=== PATIENT | male | born 1985 | race Caucasian/White ===

== ENCOUNTER 2016-08-21 14:40 | Emergency (ER) | payer OTHER ==
[2016-08-21] MEDS ORDERED: NS 500 ML IV ONE (14:59)
[2016-08-21] MEDS ORDERED: ONDANSETRON 4 MG/2 ML VIAL IVP ONE ×2 (14:59→16:24)
--- NOTE | 2016-08-21 15:11 | EDPHY ---
H & P Time Seen by Provider: 08/21/16 15:07 HPI/ROS: Chief complaint. Abdominal pain HPI. 30-year-old male with history of IBS. Has abdominal pain in the right lower quadrant that began yesterday. He was gassy. He returned on a flight from [place] and began have discomfort on the flight. No relief by taking Bentyl which usually helps is IBS symptoms. He had diarrhea this morning. His nausea without vomiting. The pain is in the right lower part of his abdomen. It comes in waves. It is not particularly worse with movement. He had similar symptoms and was hospitalized in May 2016 and had GI workup. He has been seeing Dr. Marquez for GI since then. He also had liver function studies at time. Denies urinary symptoms or fever. ROS Constitutional. no fever/chills, no weakness Eyes. no problems with vision ENT. no sore throat, no nasal drainage Cardiovascular. no chest pain Respiratory. no shortness of breath, no cough Abdominal. Abdominal pain with nausea and diarrhea . no problems urinating MS. no calf pain/swelling, no neck/back pain, no joint pain Skin. no rash Lymph. no swollen glands Neuro. no headache, no dizziness, no difficulty walking or with speech Past Medical/Surgical History: IBS, asthma Social History: , nonsmoker, no alcohol Smoking Status: Never smoked Physical Exam: General Appearance: Alert well-developed male moderate distress vital signs are stable Eyes: Pupils equal and round no pallor or injection. ENT, Mouth: Mucous membranes are moist. Respiratory: There are no retractions, lungs are clear to auscultation. Cardiovascular: Regular rate and rhythm. Gastrointestinal: Abdomen is soft and tender at McBurney's point in the right lower quadrant. Normal bowel sounds. No masses. No flank tenderness Neurological: Awake and alert, sensory and motor exams grossly normal. Skin: Warm and dry, no rashes. Musculoskeletal: Neck is supple nontender. Extremities symmetrical, full range of motion. Psychiatric: Patient is oriented X 3, there is no agitation. Constitutional: Initial Vital Signs Temperature (C) 36.5 C 08/21/16 14:48 Heart Rate 87 08/21/16 14:48 Respiratory Rate 18 08/21/16 14:48 Blood Pressure 113/84 H 08/21/16 14:48 O2 Sat (%) 97 08/21/16 14:48 O2 Delivery Mode Nasal Cannula O2 (L/minute) 2 Allergies/Adverse Reactions: codeine Allergy (Intermediate, Verified 08/21/16 14:48) Vomiting peanut Allergy (Unknown, Verified 08/21/16 14:48) Unknown Home Medications: Medication Instructions Recorded Dicyclomine [Bentyl 20 MG (*)] 20 mg PO QID PRN 06/08/16 Medical Decision Making - Diagnostics Imaging: CT abdomen with IV contrast reviewed by me and discussed with Dr. Morris shows distal esophageal circumferential thickening with lymph node. Differential would include esophagitis verses cancer. He also has some fluids throughout his small and cyst in consistent with dysmotility. Mild small-bowel inflammation. No appendix. No small bowel obstruction, perforation or intra- abdominal free fluid Procedures: IV normal saline. Dilaudid for pain ED Course/Re-evaluation: Re-evaluation at 5:15 --patient continues to have pain and nausea. Patient and I discussed treatment plan including recommendation for admission. He expresses understanding and agreement I consulted and discussed the case with Dr. Lou, hospitalist, who agrees to the admission I consulted and discussed the case with Dr. Tian, GI, who will see the patient in consult 6:30 p.m. patient apparently vomited large amount and now feels better and would like to be discharged. I have encouraged him to follow up with Dr. bria johnson and give him a call tomorrow morning. Patient is encouraged to return for worsening symptoms Differential Diagnosis: I consider IBS, Crohn's disease, appendicitis - Data Points Laboratory Results: Laboratory Results 08/21/16 15:00 08/21/16 15:00 08/21/16 15:00 WBC 8.89 10^3/uL (3.80-9.50) RBC 6.29 10^6/uL (4.40-6.38) Hgb 18.7 H g/dL (13.7-17.5) Hct 54.1 H % (40.0-51.0) MCV 86.0 fL (81.5-99.8) MCH 29.7 pg (27.9-34.1) MCHC 34.6 g/dL (32.4-36.7) RDW 12.8 % (11.5-15.2) Plt Count 194 10^3/uL (150-400) MPV 10.3 fL (8.7-11.7) Neut % (Auto) 82.1 H % (39.3-74.2) Lymph % (Auto) 10.3 L % (15.0-45.0) [place] % (Auto) 4.3 L % (4.5-13.0) Eos % (Auto) 2.0 % (0.6-7.6) Baso % (Auto) 0.4 % (0.3-1.7) Nucleat RBC Rel Count 0.0 % (0.0-0.2) Absolute Neuts (auto) 7.29 H 10^3/uL (1.70-6.50) Absolute Lymphs (auto) 0.92 L 10^3/uL (1.00-3.00) Absolute Monos (auto) 0.38 10^3/uL (0.30-0.80) Absolute Eos (auto) 0.18 10^3/uL (0.03-0.40) Absolute Basos (auto) 0.04 10^3/uL (0.02-0.10) Absolute Nucleated RBC 0.00 10^3/uL (0-0.01) Immature Gran % 0.9 % (0.0-1.1) Immature Gran # 0.08 10^3/uL (0.00-0.10) Turbidity Cancelled Sodium 143 mEq/L (134-144) Potassium 4.0 mEq/L (3.5-5.2) Chloride 106 mEq/L (97-110) Carbon Dioxide 22 mEq/l (22-31) Anion Gap 15 mEq/L (8-16) BUN 16 mg/dL (7-23) Creatinine 1.0 mg/dL (0.7-1.3) Estimated GFR > 60 Glucose 91 mg/dL (70-100) Calcium 9.9 mg/dL (8.5-10.4) Total Bilirubin 1.7 H mg/dL (0.1-1.4) Conjugated Bilirubin 0.5 mg/dL (0.0-0.5) Unconjugated Bilirubin 1.2 H mg/dL (0.0-1.1) AST 39 IU/L (17-59) ALT 47 IU/L (21-72) Alkaline Phosphatase 91 IU/L (38-126) Total Protein 8.1 g/dL (6.3-8.2) Albumin 4.7 g/dL (3.5-5.0) Lipase 67.0 IU/L (23-300) Specimen Hemolysis Cancelled Medications Given: Discontinued Medications Hydromorphone HCl (Dilaudid) 0.5 mg IVP EDNOW ONE Stop: 08/21/16 15:14 Last Admin: 08/21/16 15:23 Dose: 0.5 mg Hydromorphone HCl (Dilaudid) 0.5 mg IVP EDNOW ONE Stop: 08/21/16 15:41 Last Admin: 08/21/16 15:45 Dose: 0.5 mg Hydromorphone HCl (Dilaudid) 0.5 mg IVP EDNOW ONE Stop: 08/21/16 16:59 Last Admin: 08/21/16 17:06 Dose: 0.5 mg Sodium Chloride (Ns) 500 mls @ 0 mls/hr IV EDNOW ONE PRN Reason: Wide Open Stop: 08/21/16 15:00 Last Admin: 08/21/16 15:05 Dose: 500 mls Sodium Chloride (Ns) 1,000 mls @ 0 mls/hr IV ONCE ONE PRN Reason: Wide Open Stop: 08/21/16 15:53 Last Admin: 08/21/16 15:45 Dose: 1,000 mls Ondansetron HCl (Zofran) 4 mg IVP EDNOW ONE Stop: 08/21/16 15:00 Last Admin: 08/21/16 15:05 Dose: 4 mg Ondansetron HCl (Zofran) 4 mg IVP EDNOW ONE Stop: 08/21/16 16:25 Last Admin: 08/21/16 16:35 Dose: 4 mg Departure - Departure Disposition: Home, Routine, Self-Care Clinical Impression: Abdominal pain Condition: Good
[2016-08-21] MEDS ORDERED: HYDROmorphONE/DILAUDID 1 MG/ML SYR IVP ONE ×3 (15:13→16:58)
[2016-08-21 15:23] LABS: % IMMATURE GRANULYOCYTES 0.9 % (0.0-1.1); ABSOLUTE IMMATURE GRANULOCYTES 0.08 10^3/uL (0.00-0.10); ADD DIFF? NO; ADD MORPH? NO; ADD SCAN? NO; ATYPICAL LYMPHOCYTE FLAG 0 (0-99); FRAGMENT RBC FLAG 0 (0-99); HEMATOCRIT 54.1 % (40.0-51.0); HEMOGLOBIN 18.7 g/dL (13.7-17.5); LEFT SHIFT FLG 0 (0-99); LIPEMIA HEMOLYSIS FLAG 90 (0-99); MEAN CELL HEMOGLOBIN 29.7 pg (27.9-34.1); MEAN CELL HEMOGLOBIN CONCENTR. 34.6 g/dL (32.4-36.7); MEAN PLATELET VOLUME 10.3 fL (8.7-11.7); PLATELET CLUMPS FLAG 10 (0-99); PLATELET COUNT 194 10^3/uL (150-400); RED BLOOD CELL COUNT 6.29 10^6/uL (4.40-6.38); RED CELL DISTRIBUTION WIDTH 12.8 % (11.5-15.2)
[2016-08-21 15:24] VITALS: RESP 16
[2016-08-21 15:38] LABS: ANION GAP 15 mEq/L (8-16); CALCIUM 9.9 mg/dL (8.5-10.4); CARBON DIOXIDE 22 mEq/l (22-31); CHLORIDE 106 mEq/L (97-110); GLOMERULAR FILTRATION RATE > 60; GLUCOSE 91 mg/dL (70-100); SODIUM 143 mEq/L (134-144)
[2016-08-21] MEDS ORDERED: NS 1,000 ML IV ONE (15:52)
[2016-08-21] MEDS ORDERED: IOPAMIDOL (ISOVUE-300) 100 ML BTL IV ONE ×2 (16:08→16:24)
[2016-08-21 16:10] LABS: ALBUMIN 4.7 g/dL (3.5-5.0); BILIRUBIN,TOTAL 1.7 mg/dL (0.1-1.4); BILIRUBIN-CONJUGATED 0.5 mg/dL (0.0-0.5); BILIRUBIN-UNCONJUGATED 1.2 mg/dL (0.0-1.1); TOTAL PROTEIN 8.1 g/dL (6.3-8.2)
--- NOTE | 2016-08-21 17:32 | CT ---
CT Scan of the Abdomen and Pelvis (With Contrast) Indication: Abdominal pain. Technique: No oral or rectal contrast. 90 mL of Isovue-300 were given intravenously by machine power injection. Multidetector helical CT imaging was performed from the diaphragm to the symphysis pubis . Dose reduction techniques were utilized. Comparison: CT abdomen and pelvis dated June 07, 2016. Findings: The distal esophagus has circumferential wall thickening and an enlarged 1 cm right paraeso phageal lymph node on images 4 through 22 of series 4. The stomach is moderately distended with fluid . No ulcer or gastric wall thickening. The small bowel and colon has a diffusely dysmotile bowel andrzej jose alfredo with increased intraluminal fluid. The terminal ileum and scattered loops of distal ileum have eq uivocal eccentric wall enhancement. No mechanical obstruction or mass. Previous ileocolic lymphadenop athy has nearly completely resolved. No free fluid, abscess or pneumoperitoneum. The upper normal size spleen measuring 13 x 13 x 4 cm with a splenic index of 379 is unchanged in siz e. The liver, pancreas, gallbladder, adrenal glands, and kidneys are normal. The abdominal aorta is n ormal caliber. Urinary bladder is normal. The lung bases are clear. Lumbar spine is normal. No sacroiliitis. Impression: 1. Abnormal distal esophagus with associated enlarged lymph node. Differential diagnosis includes eso phagitis, inflammatory processes such as Crohn disease, and malignancy. Recommend endoscopy to optima lly evaluate. 2. Dysmotile bowel pattern with features of mild enteritis. Query Crohn disease versus infectious henry ology. 3. No bowel obstruction, free fluid, or abscess. 4. Upper normal size spleen unchanged. Comment: Results were discussed with Dr. Drew Jean.
[2016-08-21] MEDS ORDERED: PROMETHAZINE HCL 25 MG/ML INJ ONE (18:01)
[2016-08-21] MEDS ORDERED: PROMETHAZINE HCL 25 MG/ML INJ IVP ONE (18:02)
[2016-08-21] MEDS ORDERED: OXYCODONE/APAP 5/325MG PREPACK#4 BTL TAKEHOME ONE (18:53)
[2016-08-21] MEDS ORDERED: ONDANSETRON 4MG PREPACK#2 BTL TAKEHOME ONE (18:53)
[2016-08-21] MEDS ORDERED: KETOROLAC 15 MG/1 ML SDV IVP ONE (18:53)
[2016-08-21 19:11] VITALS: BP 103/61; PULSE 90; TEMP 98.6; O2SAT 96
== END 2016-08-21 19:12 | disposition home or self-care (01) ==
LOC: UNDOADMOB 17:58
DX: R10.31 Right lower quadrant pain (principal); J45.909 Unspecified asthma, uncomplicated; Z91.010 Allergy to peanuts
CPT/HCPCS: 96374; J1170; J1885; J2405; J2550; Q9967

== ENCOUNTER 2017-01-21 19:33 | Emergency (ER) | payer OTHER ==
[2017-01-21] MEDS ORDERED: PROPARACAINE 0.5% 15 ML OPHT DROP ONE (19:56)
[2017-01-21] MEDS ORDERED: FLUORESCEIN SODIUM 1 MG STRIP OP ONE (19:56)
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
[2017-01-21] MEDS ORDERED: OFLOXACIN 0.3% SOLN PREPACK OPHT.BTL TAKEHOME ONE (21:16)
[2017-01-21] MEDS ORDERED: PROPARACAINE 0.5% 15 ML OPHT DROP EACHEYE ONE (21:41)
[2017-01-21 21:44] VITALS: BP 115/69; PULSE 68; RESP 16; TEMP 97.9; O2SAT 96
== END 2017-01-21 21:44 | disposition home or self-care (01) ==
DX: T26.10XA Burn of cornea and conjunctival sac, unspecified eye, initial encounter (principal); X10.1XXA Contact with hot food, initial encounter

== ENCOUNTER 2017-05-11 10:59 | Emergency (ER) | payer OTHER ==
[2017-05-11] MEDS ORDERED: KETAMINE 100 MG/10 ML SYR IVP ONE (12:15)
--- NOTE | 2017-05-11 12:26 | EDPHY ---
H & P Stated Complaint: Lower abdo pain since this morning, sent by . Time Seen by Provider: 05/11/17 11:54 HPI/ROS: CHIEF COMPLAINT: Abdominal pain HISTORY OF PRESENT ILLNESS: The patient presents to the ED with an acute exacerbation of chronic abdominal pain. The patient was referred to the emergency department by his primary flexo operator Dr. Marquez. The patient reports he has been doing with intermittent abdominal pain for over a decade. The patient typically gets paroxysms of pain in his right lower quadrant. The patient reports he took Levsin prior to arrival which typically improves his symptoms. The patient did not have improvement of his symptoms which prompted his visit to the emergency department. The patient denies fever or diarrhea. He does report nausea and a abnormal taste in his mouth. The patient denies any history of fever, cough or congestion. REVIEW OF SYSTEMS: A comprehensive 10 point review of systems is otherwise negative aside from elements mentioned in the history of present illness. Source: Patient Exam Limitations: No limitations - Personal History Current Tetanus Diphtheria and Acellular Pertussis (TDAP): Yes - Medical/Surgical History Hx Asthma: Yes Hx Chronic Respiratory Disease: No Hx Diabetes: No Hx Cardiac Disease: No Hx Renal Disease: No Hx Cirrhosis: No Hx Alcoholism: No Hx HIV/AIDS: No Hx Splenectomy or Spleen Trauma: No Other PMH: ASTHMA, IBS. - Social History Smoking Status: Never smoked - Physical Exam Exam: General Appearance: Alert, no distress Eyes: Pupils equal and round no pallor or injection ENT, Mouth: Mucous membranes moist Respiratory: There are no retractions, lungs are clear to auscultation Cardiovascular: Regular rate and rhythm Gastrointestinal: Tenderness to palpation right lower quadrant, no peritoneal signs Neurological: A&O, normal motor function, normal sensory exam, normal cranial nerves Skin: Warm and dry, no rashes Musculoskeletal: Neck is supple nontender Extremities: symmetrical, full range of motion Constitutional: Initial Vital Signs Temperature (C) 36.5 C 05/11/17 11:09 Heart Rate 82 05/11/17 11:09 Respiratory Rate 18 05/11/17 11:09 Blood Pressure 116/84 H 05/11/17 11:09 O2 Sat (%) 97 05/11/17 11:09 O2 Delivery Mode Room Air Allergies/Adverse Reactions: codeine Allergy (Intermediate, Verified 01/21/17 19:37) Vomiting peanut Allergy (Unknown, Verified 01/21/17 19:37) Unknown Home Medications: Medication Instructions Recorded Hycosamine 01/21/17 Medical Decision Making ED Course/Re-evaluation: The patient had an IV established. He received a dose of IV Toradol and ketamine. The patient's laboratory studies are within normal limits. The patient was taken for CT scan of the abdomen pelvis which demonstrates an area of focal area of inflammation in the small bowel. There is a normal appearing appendix. There is no evidence of a perforation or obstruction. The patient was re-evaluated. He is currently feeling better. The patient is currently established with [facility]. I do feel the patient can continue his regular medications. He should follow up with his regular flexo operator Dr. Marquez to review his CT scan. The patient should return to the ED for markedly worsening symptoms or other concerns. Differential Diagnosis: Differential diagnosis considered includes perforation, obstruction, appendicitis, pancreatitis, cholecystitis, inflammatory bowel disease - Data Points Laboratory Results: Laboratory Results 05/11/17 13:05 05/11/17 12:24 05/11/17 05/11/17 05/11/17 13:05 12:24 12:24 WBC 6.56 10^3/uL 10^3/uL REJ (3.80-9.50) RBC 5.57 10^6/uL 10^6/uL REJ (4.40-6.38) Hgb 17.0 g/dL g/dL REJ (13.7-17.5) Hct 48.0 % % REJ (40.0-51.0) MCV 86.2 fL fL REJ (81.5-99.8) MCH 30.5 pg pg REJ (27.9-34.1) MCHC 35.4 g/dL g/dL REJ (32.4-36.7) RDW 12.9 % % REJ (11.5-15.2) Plt Count 209 10^3/uL 10^3/uL REJ (150-400) MPV 9.8 fL fL REJ (8.7-11.7) Neut % (Auto) 54.5 % % REJ (39.3-74.2) Lymph % (Auto) 36.1 % % REJ (15.0-45.0) [place] % (Auto) 6.7 % % REJ (4.5-13.0) Eos % (Auto) 2.1 % % REJ (0.6-7.6) Baso % (Auto) 0.3 % % REJ (0.3-1.7) Nucleat RBC Rel Count 0.0 % % REJ (0.0-0.2) Absolute Neuts (auto) 3.57 10^3/uL 10^3/uL REJ (1.70-6.50) Absolute Lymphs (auto) 2.37 10^3/uL 10^3/uL REJ (1.00-3.00) Absolute Monos (auto) 0.44 10^3/uL 10^3/uL REJ (0.30-0.80) Absolute Eos (auto) 0.14 10^3/uL 10^3/uL REJ (0.03-0.40) Absolute Basos (auto) 0.02 10^3/uL 10^3/uL REJ (0.02-0.10) Absolute Nucleated RBC 0.00 10^3/uL 10^3/uL REJ (0-0.01) Immature Gran % 0.3 % % REJ (0.0-1.1) Immature Gran # 0.02 10^3/uL 10^3/uL REJ (0.00-0.10) Sodium 143 mEq/L mEq/L (134-144) Potassium 4.3 mEq/L mEq/L (3.5-5.2) Chloride 102 mEq/L mEq/L (97-110) Carbon Dioxide 27 mEq/l mEq/l (22-31) Anion Gap 14 mEq/L mEq/L (8-16) BUN 10 mg/dL mg/dL (7-23) Creatinine 1.1 mg/dL mg/dL (0.7-1.3) Estimated GFR > 60 Glucose 86 mg/dL mg/dL (70-100) Calcium 9.5 mg/dL mg/dL (8.5-10.4) Total Bilirubin 0.9 mg/dL mg/dL (0.1-1.4) Conjugated Bilirubin 0.3 mg/dL mg/dL (0.0-0.5) Unconjugated Bilirubin 0.6 mg/dL mg/dL (0.0-1.1) AST 35 IU/L IU/L (17-59) ALT 61 IU/L IU/L (21-72) Alkaline Phosphatase 74 IU/L IU/L (38-126) Total Protein 7.4 g/dL g/dL (6.3-8.2) Albumin 4.6 g/dL g/dL (3.5-5.0) Lipase 76 IU/L IU/L (23-300) Medications Given: Discontinued Medications Ketamine HCl (Ketamine) 16.8 mg 0.2 mg/kg (16.8 mg) IVP EDNOW ONE Stop: 05/11/17 12:16 Last Admin: 05/11/17 12:33 Dose: 16.8 mg Ketorolac Tromethamine (Toradol) 15 mg IVP EDNOW ONE Stop: 05/11/17 13:55 Last Admin: 05/11/17 13:56 Dose: 15 mg Departure - Departure Disposition: Home, Routine, Self-Care Clinical Impression: Right lower quadrant abdominal pain Condition: Good Instructions: Abdominal Pain (ED) Additional Instructions: Sometimes we are unable to diagnose an obvious cause of abdominal pain in the Emergency Department. Based upon our evaluation today, I believe this is a exacerbation of your chronic abdominal pain. You do have some nonspecific changes on your CT scan I would like you to schedule a follow-up appointment to be seen by your regular flexo operator within the week. Because more serious conditions can be difficult to diagnose early in the course of their presentation, we ask that you return to the Emergency Department in 8-12 hours for a recheck if you are still having pain. This is necessary to exclude the development of a more serious condition such as appendicitis or other intra- abdominal emergency. In the event your pain markedly increases before that time or you develop intractable vomiting or fever return to the Emergency Department immediately. Referrals: Jasvir Mcclendon MD [Primary Care Provider] - As per Instructions
[2017-05-11 12:57] LABS: ALANINE AMINOTRANSFERASE 61 IU/L (21-72); ALBUMIN 4.6 g/dL (3.5-5.0); ALKALINE PHOSPHATASE 74 IU/L (38-126); ANION GAP 14 mEq/L (8-16); ASPARTATE AMINOTRANSFERASE 35 IU/L (17-59); BILIRUBIN,TOTAL 0.9 mg/dL (0.1-1.4); BILIRUBIN-CONJUGATED 0.3 mg/dL (0.0-0.5); BILIRUBIN-UNCONJUGATED 0.6 mg/dL (0.0-1.1); CALCIUM 9.5 mg/dL (8.5-10.4); CARBON DIOXIDE 27 mEq/l (22-31); CHLORIDE 102 mEq/L (97-110); CREATININE 1.1 mg/dL (0.7-1.3); GLOMERULAR FILTRATION RATE > 60; GLUCOSE 86 mg/dL (70-100); POTASSIUM 4.3 mEq/L (3.5-5.2); SODIUM 143 mEq/L (134-144); TOTAL PROTEIN 7.4 g/dL (6.3-8.2)
[2017-05-11 13:23] LABS: % IMMATURE GRANULYOCYTES 0.3 % (0.0-1.1); ABSOLUTE IMMATURE GRANULOCYTES 0.02 10^3/uL (0.00-0.10); ADD DIFF? NO; ADD MORPH? NO; ADD SCAN? NO; ATYPICAL LYMPHOCYTE FLAG 0 (0-99); FRAGMENT RBC FLAG 20 (0-99); LEFT SHIFT FLG 0 (0-99); LIPEMIA HEMOLYSIS FLAG 90 (0-99); MEAN CELL HEMOGLOBIN 30.5 pg (27.9-34.1); MEAN CELL HEMOGLOBIN CONCENTR. 35.4 g/dL (32.4-36.7); MEAN CELL VOLUME 86.2 fL (81.5-99.8); MEAN PLATELET VOLUME 9.8 fL (8.7-11.7); PLATELET CLUMPS FLAG 0 (0-99); PLATELET COUNT 209 10^3/uL (150-400); RED BLOOD CELL COUNT 5.57 10^6/uL (4.40-6.38); RED CELL DISTRIBUTION WIDTH 12.9 % (11.5-15.2)
[2017-05-11] MEDS ORDERED: KETOROLAC 15 MG/1 ML SDV ONE (13:51)
[2017-05-11] MEDS ORDERED: KETOROLAC 15 MG/1 ML SDV IVP ONE (13:54)
[2017-05-11] MEDS ORDERED: IOPAMIDOL (ISOVUE-300) 100 ML BTL ONE (14:01)
[2017-05-11 15:46] VITALS: BP 109/77; PULSE 78; RESP 16; TEMP 98.2; O2SAT 97
== END 2017-05-11 15:45 | disposition home or self-care (01) ==
DX: R10.31 Right lower quadrant pain (principal); J45.909 Unspecified asthma, uncomplicated; Z91.010 Allergy to peanuts
CPT/HCPCS: 96374; J1885; Q9967

== ENCOUNTER → 2017-06-02 | Outpatient (CLI) | payer OTHER | LOC: FIMAGING 12:24 | PROVIDERS: ATTEND Internal Medicine Gastroenterology | DX: R93.3 Abnormal findings on diagnostic imaging of other parts of digestive tract (principal) ==

== ENCOUNTER → 2017-06-03 | Outpatient (CLI) | payer OTHER | LOC: FIMAGING 08:36 | PROVIDERS: ATTEND Internal Medicine Gastroenterology | DX: R93.3 Abnormal findings on diagnostic imaging of other parts of digestive tract (principal) ==

== ENCOUNTER 2018-11-07 07:54 | Emergency (ER) | payer OTHER ==
[2018-11-07] MEDS ORDERED: NS 1,000 ML IV ONE (08:30)
[2018-11-07] MEDS ORDERED: ONDANSETRON 4 MG/2 ML VIAL IVP ONE (08:48)
[2018-11-07] MEDS ORDERED: KETOROLAC 15 MG/1 ML SDV IVP ONE (09:01)
--- NOTE | 2018-11-07 09:05 | EDPHY ---
H & P Stated Complaint: travel to [place] 2 days diarrhea and abd pain/cramps Time Seen by Provider: 11/07/18 08:36 HPI/ROS: CHIEF COMPLAINT: Abdominal pain, diarrhea HISTORY OF PRESENT ILLNESS: 33-year-old male presents with abdominal pain and diarrhea. He returned from [place] 4 days ago. Onset of loose stools yesterday. Multiple episodes of diarrhea last evening and throughout the night. Associated with moderate to severe lower abdominal pain. The pain waxes and wanes. No associated fever or vomiting. No known ill contacts. REVIEW OF SYSTEMS: complete 10 point ROS reviewed and is negative except for the noted elements in the HPI - Personal History Current Tetanus Diphtheria and Acellular Pertussis (TDAP): Yes - Medical/Surgical History Hx Asthma: Yes Hx Chronic Respiratory Disease: No Hx Diabetes: No Hx Cardiac Disease: No Hx Renal Disease: No Hx Cirrhosis: No Hx Alcoholism: No Hx HIV/AIDS: No Hx Splenectomy or Spleen Trauma: No Other PMH: ASTHMA, IBS. - Social History Smoking Status: Never smoked Alcohol Use: Sober - Physical Exam Exam: General Appearance: Alert, pleasant Eyes: Pupils equal and round, no conjunctival pallor ENT, Mouth: Mucous membranes moist Neck: Normal inspection Respiratory: Lungs are clear to auscultation Cardiovascular: Regular rate and rhythm Gastrointestinal: Abdomen is soft, diffuse lower abdominal tenderness, no peritoneal signs Neurological: A&O, nonfocal, normal gait Skin: Warm and dry Extremities: Normal inspection Psychiatric: Mood and affect normal Constitutional: Initial Vital Signs Temperature (C) 36.6 C 11/07/18 07:57 Heart Rate 80 11/07/18 07:57 Respiratory Rate 18 11/07/18 07:57 Blood Pressure 124/80 H 11/07/18 07:57 O2 Sat (%) 98 11/07/18 07:57 O2 Delivery Mode Room Air Allergies/Adverse Reactions: codeine Allergy (Intermediate, Verified 11/07/18 07:56) Vomiting peanut Allergy (Unknown, Verified 11/07/18 07:56) Unknown Home Medications: Medication Instructions Recorded Hycosamine 01/21/17 Medical Decision Making - Diagnostics Imaging Results: Imaging Impressions Abdomen CT 11/07/18 09:14 Impression: 1. Suspect infectious enterocolitis resulting in diffuse fluid-filled mildly edematous colon. 2. Normal appendix. 3. No free fluid, abscess, or bowel obstruction. 4. Upper normal size spleen is unchanged since 2017. Findings discussed with emergency department physician, Jennifer Fernandez MD on November 07, 2018 at 9:54 a.m. Imaging: Discussed imaging studies w/ bingo caller Radiologist ED Course/Re-evaluation: This patient presents with abdominal pain and diarrhea, most likely acute enteritis related to recent visit to [place]. However, his abdominal exam is much more tender than I would expect from acute enteritis. Toradol [address] scan of the abdomen/pelvis was ordered. 10:00 a.m.-CT scan of the abdomen pelvis reveals acute colitis, no evidence of appendicitis or diverticulitis. Results discussed with the patient. Feels better after IV Toradol. GI pathogen panel pending. Symptomatic care for diarrhea discussed. Differential Diagnosis: Differential diagnosis includes though it is not limited to appendicitis, cholecystitis, diverticulitis, pyelonephritis, bowel perforation, small bowel obstruction. - Data Points Laboratory Results: Laboratory Results 11/07/18 08:20 11/07/18 08:20 11/07/18 11/07/18 08:20 08:20 WBC 7.67 10^3/uL 10^3/uL (3.80-9.50) RBC 5.91 10^6/uL 10^6/uL (4.40-6.38) Hgb 17.4 g/dL g/dL (13.7-17.5) Hct 50.0 % % (40.0-51.0) MCV 84.6 fL fL (81.5-99.8) MCH 29.4 pg pg (27.9-34.1) MCHC 34.8 g/dL g/dL (32.4-36.7) RDW 13.2 % % (11.5-15.2) Plt Count 174 10^3/uL 10^3/uL (150-400) MPV 10.1 fL fL (8.7-11.7) Neut % (Auto) 83.5 % H % (39.3-74.2) Lymph % (Auto) 8.6 % L % (15.0-45.0) Ware % (Auto) 6.5 % % (4.5-13.0) Eos % (Auto) 1.0 % % (0.6-7.6) Baso % (Auto) 0.3 % % (0.3-1.7) Nucleat RBC Rel Count 0.0 % % (0.0-0.2) Absolute Neuts (auto) 6.40 10^3/uL 10^3/uL (1.70-6.50) Absolute Lymphs (auto) 0.66 10^3/uL L 10^3/uL (1.00-3.00) Absolute Monos (auto) 0.50 10^3/uL 10^3/uL (0.30-0.80) Absolute Eos (auto) 0.08 10^3/uL 10^3/uL (0.03-0.40) Absolute Basos (auto) 0.02 10^3/uL 10^3/uL (0.02-0.10) Absolute Nucleated RBC 0.00 10^3/uL 10^3/uL (0-0.01) Immature Gran % 0.1 % % (0.0-1.1) Immature Gran # 0.01 10^3/uL 10^3/uL (0.00-0.10) Sodium 139 mEq/L mEq/L (135-145) Potassium 4.0 mEq/L mEq/L (3.5-5.2) Chloride 106 mEq/L mEq/L (97-110) Carbon Dioxide 19 mEq/l L mEq/l (22-31) Anion Gap 14 mEq/L mEq/L (6-14) BUN 18 mg/dL mg/dL (7-23) Creatinine 1.1 mg/dL mg/dL (0.7-1.3) Estimated GFR > 60 Glucose 95 mg/dL mg/dL (70-100) Calcium 10.1 mg/dL mg/dL (8.5-10.4) Microbiology Results: MICROBIOLOGY 11/07/18 08:30 Stool Gastrointestinal Tract Panel (PCR) - Final Salmonella Species E.coli Enteroaggregative(Eaec) Astrovirus Rotavirus A Medications Given: Discontinued Medications Sodium Chloride (Ns) 1,000 mls @ 0 mls/hr IV ONCE ONE; Wide Open PRN Reason: Protocol Stop: 11/07/18 08:31 Last Admin: 11/07/18 08:30 Dose: 1,000 mls Ketorolac Tromethamine (Toradol) 30 mg IVP EDNOW ONE Stop: 11/07/18 09:02 Last Admin: 11/07/18 09:35 Dose: 30 mg Ondansetron HCl (Zofran) 4 mg IVP EDNOW ONE Stop: 11/07/18 08:49 Last Admin: 11/07/18 08:50 Dose: 4 mg Departure - Departure Disposition: Home, Routine, Self-Care Clinical Impression: Acute infectious diarrhea Condition: Good Instructions: Traveler's Diarrhea (ED) Additional Instructions: Clear fluids for 24 hours. Gradually advance diet as tolerated. Ibuprofen and/or Tylenol as needed for abdominal cramping. Take Imodium as directed on the label. Referrals: Jasvir Mcclendon MD [Primary Care Provider] - As per Instructions
[2018-11-07 09:07] LABS: PLATELET COUNT 174 10^3/uL (150-400)
[2018-11-07] MEDS ORDERED: IOPAMIDOL (ISOVUE-300) 100 ML BTL ONE (09:17)
[2018-11-07] MEDS ORDERED: LOPERAMIDE HCL 2 MG CAP PO ONE (09:56)
[2018-11-07 10:42] VITALS: BP 126/84
== END 2018-11-07 10:41 | disposition home or self-care (01) ==
DX: A09 Infectious gastroenteritis and colitis, unspecified (principal); E86.9 Volume depletion, unspecified
CPT/HCPCS: 96374; J1885; J2405; Q9967